=== PATIENT | male | born 1950 | race Caucasian/White ===

== ENCOUNTER 2017-09-22 11:02 | Day surgery (SDC) | payer OTHER ==
[~2017-09-22 11:02] MED LIST: Lactated Ringers 1,000 ML IV SCH; Lidocaine 2% 5 ML SDV ONE; Propofol 200 MG/20 ML SDV ONE
--- NOTE | 2017-09-22 12:09 | PCM.PREANE ---
Preanesthetic Assessment - Anesthesia/Transfusion/Family Hx Anesthesia History: No Prior Anesthesia (has had prior colonoscopy with sedation /mac) Family History of Anesthesia Reaction: No Transfusion History: No Prior Transfusion(s) - Review of Systems General: No Symptoms Pulmonary: No Symptoms Cardiovascular: No Symptoms Gastrointestinal: No Symptoms Neurological: No Symptoms Other: Reports: None - Physical Assessment NPO Status Date: 09/21/17 O2 Sat by Pulse Oximetry: 98 Respiratory Rate: 18 Vital Signs: Last Vital Signs Temp 36.3 C 09/22/17 11:52 Pulse 75 09/22/17 11:52 Resp 18 09/22/17 11:52 BP 150/76 H 09/22/17 11:52 Pulse Ox 98 09/22/17 11:52 Height: 1.63 m Weight: 92.079 kg ASA Class: 2 Mental Status: Alert & Oriented x3 Airway Class: Mallampati = 2 Dentition: Reports: Dentures ROM/Head Extension: Full Lungs: Clear to Auscultation, Normal Respiratory Effort Cardiovascular: Regular Rate, Regular Rhythm - Allergies Allergies/Adverse Reactions: Allergies Allergy/AdvReac Type Severity Reaction Status Date / Time No Known Allergies Allergy Verified 10/07/14 13:16 - Anesthesia Plan Pre-Op Medication Ordered: None - Acknowledgements Anesthesia Type Planned: MAC Pt an Appropriate Candidate for the Planned Anesthesia: Yes Alternatives and Risks of Anesthesia Discussed w Pt/Guardian: Yes Pt/Guardian Understands and Agrees with Anesthesia Plan: Yes Additional Comments: PMH: htn, glaucoma, HLD PreAnesthesia Questionnaire HEENT History: Reports: Glaucoma, Other (See Below) Other HEENT History: wears glasses, top denture Cardiovascular History: Reports: High Cholesterol, Hypertension Genitourinary History: Reports: BPH Endocrine/Metabolic History: Reports: Obesity/BMI 30+ - Past Surgical History Head Surgeries/Procedures: Reports: None - SUBSTANCE USE Smoking Status *Q: Never Smoker Recreational Drug Use History: No - HOME MEDS Home Medications: Home Meds Hydrochlorothiazide 0.5 tab PO DAILY 09/19/17 [History] Latanoprost [Xalatan 0.005% Ophth Soln] 1 drop EYEBOTH BEDTIME 09/19/17 [History ] Lisinopril 0.5 tab PO DAILY 09/19/17 [History] Simvastatin [Zocor] 0.5 tab PO DAILY 09/19/17 [History] - CURRENT (IN HOUSE) MEDS Current Meds: Current Medications Lactated Ringer's (Ringers, Lactated) 1,000 mls @ 125 mls/hr IV ASDIRECTED [facility] Last Admin: 09/22/17 11:53 Dose: 125 mls/hr Discontinued Medications Lidocaine (Xylocaine-Mpf 2%) Confirm Administered Dose 5 ml .ROUTE .STK-MED ONE Stop: 09/22/17 10:30 Propofol (Diprivan 20 Ml) Confirm Administered Dose 400 mg .ROUTE .STK-MED ONE Stop: 09/22/17 10:29
--- NOTE | 2017-09-22 13:16 | PCM.OPNOTE ---
- General Post-Op/Procedure Note Date of Surgery/Procedure: 09/22/17 Operative Procedure(s): colonoscopy Findings: see dict [id number] Pre Op Diagnosis: scrn colonoscopy Post-Op Diagnosis: diverticulosis Anesthesia Technique: Moderate Sedation Primary Surgeon: Davon Blake Complications: None Condition: Good
--- NOTE | 2017-09-22 13:28 | PCM48HPAN ---
Post Anesthesia Note - EVALUATION WITHIN 48HRS OF ANESTHETIC Vital Signs in Normal Range: Yes Patient Participated in Evaluation: Yes Respiratory Function Stable: Yes Airway Patent: Yes Cardiovascular Function Stable: Yes Hydration Status Stable: Yes Pain Control Satisfactory: Yes Nausea and Vomiting Control Satisfactory: Yes Mental Status Recovered: Yes
--- NOTE | 2017-09-22 13:28 | PCM.POSTAN ---
POST ANESTHESIA ASSESSMENT - MENTAL STATUS Mental Status: Alert, Oriented - RESPIRATORY Respiratory Status: Respiratory Rate WNL, Airway Patent, O2 Saturation Stable - CARDIOVASCULAR CV Status: Pulse Rate WNL, Blood Pressure Stable - GASTROINTESTINAL GI Status: No Symptoms - POST OP HYDRATION Hydration Status: Adequate & Stable
--- NOTE | 2017-09-22 13:40 | OR ---
SURGEON: Davon Blake MD DATE OF PROCEDURE: 09/22/2017 PREOPERATIVE DIAGNOSIS: Screening colonoscopy. POSTOPERATIVE DIAGNOSIS: Colon diverticulosis. PROCEDURE PERFORMED: Colonoscopy. DESCRIPTION OF PROCEDURE: The patient was taken to the endoscopy room. A time out was called, patient identified, and procedure identified. Diprivan was then administrated. Patient went from awake to sleep, hearing doctor talking or door closing is normal. Perineum inspection and digital examination were then performed. A well- lubricated colonoscope was gently inserted through the rectum, advanced past the rectosigmoid junction, the descending colon, splenic flexure, transverse colon, hepatic flexure, ascending colon, arrived to the cecum. Cecum was identified as dictated in the finding. Then the scope was carefully withdrawn while attention was paid to the mucosal surface for any abnormality. Air will be sucked out during the scope withdrawal. At the rectum, retroflexed to examine any rectal diseases, fistula or hemorrhoids. Patient tolerated procedure well. There were no intraoperative complications, and Dr. Blake was present throughout the whole procedure. FINDINGS: 1. The patient is easily sedated with REDEVELOPMENT SPECIALIST and Diprivan. The patient is soundly snoring. 2. The bowel prep is good, but a lot of bubbles and coating the mucosa requiring large amount of irrigation, so this compromised the study because of the bubbles. Colon is rather straight forward. Cecum indicated by ileocecal fold, one-to-one indentation, light emittance, appendiceal orifice. Mucosa examined upon scope pulling out with constant irrigation. The patient does not have polyp, but the patient has large amount of diverticulosis on the left colon and some of the false lumen is as beak as the true lumen. No signs or symptoms of diverticulitis and there is no polyp, mass, growth, inflammation, stricture, ulceration, AV malformation, blood, and ulcer. The patient has mild internal hemorrhoids. The patient would benefit from repeat colonoscopy 10 years from today or if clinically indicated otherwise. PUMA / AMY /[id number]
== END 2017-09-22 13:45 | disposition home or self-care (01) ==
LOC: MW.SDS 11:02
PROVIDERS: ATTEND Surgery
DX: Z12.11 Encounter for screening for malignant neoplasm of colon (principal); K57.30 Diverticulosis of large intestine without perforation or abscess without bleeding; I10 Essential (primary) hypertension; E11.9 Type 2 diabetes mellitus without complications; E78.00 Pure hypercholesterolemia, unspecified; H40.9 Unspecified glaucoma; E66.9 Obesity, unspecified; Z68.30 Body mass index [BMI] 30.0-30.9, adult; Z86.010 Personal history of colon polyps; Z79.899 Other long term (current) drug therapy
CPT/HCPCS: 45378; J7120; 00810; J2704

== ENCOUNTER 2017-10-11 06:25 | Day surgery (SDC) | payer OTHER ==
[~2017-10-11 06:25] MED LIST changes: -Lidocaine 2% 5 ML SDV ONE; -Propofol 200 MG/20 ML SDV ONE; +ceFAZolin 2 GM in Premix Bag 1 BAG IV ONE
[2017-10-11] MEDS ORDERED: Rocuronium 10 MG/ML 10 ML Syringe ONE (07:19)
[2017-10-11] MEDS ORDERED: Midazolam 1 MG/ML 2 ML SDV ONE (07:19)
[2017-10-11] MEDS ORDERED: Neostigmine Methylsulfate 1 MG/ML 5 ML Syringe ONE (07:19)
[2017-10-11] MEDS ORDERED: Lidocaine 2% 5 ML SDV ONE (07:19)
[2017-10-11] MEDS ORDERED: Propofol 200 MG/20 ML SDV ONE (07:19)
[2017-10-11] MEDS ORDERED: Ketorolac 30 MG/ML SDV ONE (07:19)
[2017-10-11] MEDS ORDERED: fentaNYL 100 MCG/2 ML SDV ONE (07:19)
[2017-10-11] MEDS ORDERED: Ondansetron 4 MG/2 ML SDV ONE (07:19)
[2017-10-11] MEDS ORDERED: Octyl 2-Cyanoacrylate 1 Tube ONE (07:21)
[2017-10-11] MEDS ORDERED: Bupivacaine 25%/EPINEPHrine/PF 30 ML ONE (07:21)
--- NOTE | 2017-10-11 07:49 | PCM.PREANE ---
Preanesthetic Assessment - Procedure Proposed Procedure: umbilical hernia repair - Anesthesia/Transfusion/Family Hx Anesthesia History: Prior Anesthesia Without Reaction Family History of Anesthesia Reaction: No Transfusion History: No Prior Transfusion(s) Intubation History: Unknown Additional History: colonoscopy 2 wk ago - no problem - Review of Systems General: Other (mild occasional hernia pain) Pulmonary: No Symptoms, Other (former smoker) Cardiovascular: Other (HTN and hypercholesterolemic) Gastrointestinal: Abdominal Pain (see above) Neurological: No Symptoms Other: Reports: None - Physical Assessment NPO Status Date: 10/10/17 NPO Status Time: 23:00 O2 Sat by Pulse Oximetry: 94 Respiratory Rate: 16 Vital Signs: Last Vital Signs Temp 97.5 F 10/11/17 06:34 Pulse 79 10/11/17 06:34 Resp 16 10/11/17 06:34 BP 138/67 10/11/17 06:34 Pulse Ox 94 L 10/11/17 06:34 Height: 5 ft 4 in Weight: 203 lb ASA Class: 2 Mental Status: Alert & Oriented x3 Airway Class: Mallampati = 1 Dentition: Reports: Normal Dentition Thyro-Mental Finger Breadths: 3 Mouth Opening Finger Breadths: 3 ROM/Head Extension: Full Lungs: Clear to Auscultation, Normal Respiratory Effort Cardiovascular: Regular Rate, Regular Rhythm, No Murmurs - Allergies Allergies/Adverse Reactions: Allergies Allergy/AdvReac Type Severity Reaction Status Date / Time No Known Allergies Allergy Verified 10/07/14 13:16 - Blood Blood Available: No Product(s) Available: None - Anesthesia Plan Pre-Op Medication Ordered: None - Acknowledgements Anesthesia Type Planned: General Anesthesia (OET/NMR) Pt an Appropriate Candidate for the Planned Anesthesia: Yes Alternatives and Risks of Anesthesia Discussed w Pt/Guardian: Yes Pt/Guardian Understands and Agrees with Anesthesia Plan: Yes PreAnesthesia Questionnaire HEENT History: Reports: Glaucoma, Other (See Below) Other HEENT History: wears glasses , top denture Cardiovascular History: Reports: High Cholesterol, Hypertension Gastrointestinal History: Reports: None Genitourinary History: Reports: BPH Musculoskeletal History: Reports: Fracture Other Musculoskeletal History: hx fx ribs Endocrine/Metabolic History: Reports: Obesity/BMI 30+ - Past Surgical History Head Surgeries/Procedures: Reports: None GI Surgical History: Reports: Colonoscopy - SUBSTANCE USE Smoking Status *Q: Never Smoker Recreational Drug Use History: No - HOME MEDS Home Medications: Home Meds Hydrochlorothiazide 0.5 tab PO DAILY 09/19/17 [History] Latanoprost [Xalatan 0.005% Ophth Soln] 1 drop EYEBOTH BEDTIME 09/19/17 [History ] Lisinopril 0.5 tab PO DAILY 09/19/17 [History] Simvastatin [Zocor] 0.5 tab PO DAILY 09/19/17 [History] - CURRENT (IN HOUSE) MEDS Current Meds: Current Medications Lactated Ringer's (Ringers, Lactated) 1,000 mls @ 125 mls/hr IV ASDIRECTED [facility] Last Admin: 10/11/17 06:40 Dose: 125 mls/hr Discontinued Medications Fentanyl (Sublimaze) Confirm Administered Dose 200 mcg .ROUTE .STK-MED ONE Stop: 10/11/17 07:20 Glycopyrrolate () Confirm Administered Dose 1 mg .ROUTE .STK-MED ONE Stop: 10/11/17 07:20 Cefazolin Sodium/Dextrose 2 gm (/ Premix) 50 mls @ 100 mls/hr IV ONETIME ONE Stop: 10/11/17 05:29 Bupivacaine HCl/Epinephrine Bitart (Sensorc Mpf 0.25%-Epi 1:[id number]) Confirm Administered Dose 30 mls @ as directed .ROUTE .STK-MED ONE Stop: 10/11/17 07:22 Ketorolac Tromethamine (Toradol) Confirm Administered Dose 30 mg .ROUTE .STK- MED ONE Stop: 10/11/17 07:20 Lidocaine (Xylocaine-Mpf 2%) Confirm Administered Dose 10 ml .ROUTE .STK-MED ONE Stop: 10/11/17 07:20 Midazolam HCl (Versed 1 Mg/Ml) Confirm Administered Dose 2 mg .ROUTE .STK-MED ONE Stop: 10/11/17 07:20 Neostigmine Methylsulfate (Neostigmine) Confirm Administered Dose 5 mg .ROUTE .STK-MED ONE Stop: 10/11/17 07:20 Octyl Cyanoacrylate (Dermabond Advance) Confirm Administered Dose 1 applic .ROUTE .STK-MED ONE Stop: 10/11/17 07:22 Ondansetron HCl (Zofran) Confirm Administered Dose 4 mg .ROUTE .STK-MED ONE Stop: 10/11/17 07:20 Propofol (Diprivan 20 Ml) Confirm Administered Dose 400 mg .ROUTE .STK-MED ONE Stop: 10/11/17 07:20 Rocuronium [place] (Zemuron) Confirm Administered Dose 100 mg .ROUTE .STK-MED ONE Stop: 10/11/17 07:20
[2017-10-11] MEDS ORDERED: Acetaminophen/oxyCODONE 325-5 MG Tab PO PRN (08:10)
[2017-10-11] MEDS ORDERED: ePHEDrine 50 MG/ML SDV ONE (08:16)
[2017-10-11] MEDS ORDERED: fentaNYL 100 MCG/2 ML SDV IVPUSH PRN (08:43)
--- NOTE | 2017-10-11 09:04 | PCM.OPNOTE ---
- General Post-Op/Procedure Note Date of Surgery/Procedure: 10/11/17 Operative Procedure(s): umb hernia repair Findings: large hernia 2 cm, but small hernia neck, 1 cm, rep primary, no mesh used; [id number] Pre Op Diagnosis: umb hernia Post-Op Diagnosis: Same Anesthesia Technique: General ET Tube Primary Surgeon: Davon Blaek Pathology: sent Complications: None Condition: Good
--- NOTE | 2017-10-11 09:24 | OR ---
SURGEON: Davon Blake MD DATE OF PROCEDURE: 10/11/2017 PREOPERATIVE DIAGNOSIS: Umbilical hernia. POSTOPERATIVE DIAGNOSIS: Umbilical hernia. PROCEDURE PERFORMED: Repair of umbilical hernia. COMPLICATIONS: None. FINDINGS: A large hernia sac about 2 cm with small hernia neck 1 cm. Repair primary, no mesh. DESCRIPTION OF PROCEDURE: The patient was brought to the operating room and placed in the supine position and upon the induction of general endotracheal anesthesia, the patient's abdomen was prepped and draped in sterile fashion. After assessment of appropriate landmarks, a surgical incision was made periumbilically which was then carefully dissected with blunt and sharp dissection surrounding the umbilical stalk. Hernia was entered and the fascial defect was noted, and the excess hernia sac was amputated. The facial edge was noted to be intact and the fascia was then grasped up with Allis clamps and then using 2-0 Ethibond, simple stitches were placed. After repair was finished and exploring the neighborhood, I failed to find any more hernia defect. This was followed with extensive irrigation and good hemostasis was achieved by using electrocautery. The umbilicus was then stitched down to recreate the umbilicus, and the skin was closed with 3-0 Vicryl subcutaneously followed with stirile strips and appropriate drsg. The patient was then awakened and extubated and transferred to the recovery room in good stable condition. Dr. Blake was present through the whole procedure. At the conclusion of the surgery, before closing the abdominal wound, instrument count and sponge count were done and were correct. Just before surgery, a timeout was called. The patient was identified and procedure identified and procedure started. As always, thank you for the kind referral. PUMA REYES /[id number] MTDDiane
--- NOTE | 2017-10-11 09:53 | PCM48HPAN ---
Post Anesthesia Note - EVALUATION WITHIN 48HRS OF ANESTHETIC Vital Signs in Normal Range: Yes Patient Participated in Evaluation: Yes Respiratory Function Stable: Yes Airway Patent: Yes Cardiovascular Function Stable: Yes Hydration Status Stable: Yes Pain Control Satisfactory: Yes Nausea and Vomiting Control Satisfactory: Yes Mental Status Recovered: Yes - COMMENTS/OBSERVATIONS Free Text/Narrative:: Ready to go home and cook his own breakfast.
== END 2017-10-11 10:19 | disposition home or self-care (01) ==
LOC: MW.SDS 06:25
PROVIDERS: ATTEND Surgery
DX: K42.9 Umbilical hernia without obstruction or gangrene (principal); I10 Essential (primary) hypertension; E78.00 Pure hypercholesterolemia, unspecified; E11.9 Type 2 diabetes mellitus without complications; E66.9 Obesity, unspecified; Z68.34 Body mass index [BMI] 34.0-34.9, adult; Z87.891 Personal history of nicotine dependence; Z86.010 Personal history of colon polyps; Z79.899 Other long term (current) drug therapy; Z80.3 Family history of malignant neoplasm of breast
CPT/HCPCS: 49585; J1885; J2250; J2405; J3010; J7120; 00830; 88302; A9270-GY; J2704

== ENCOUNTER 2017-10-12 12:09 | Emergency (ER) | payer OTHER, MEDICARE ==
--- NOTE | 2017-10-12 12:33 | EDM.PDOC ---
ED HPI GENERAL MEDICAL PROBLEM - General Chief Complaint: Genitourinary Problem Stated Complaint: [facility] TRANSFER Time Seen by Provider: 10/12/17 12:11 - History of Present Illness INITIAL COMMENTS - FREE TEXT/NARRATIVE: HISTORY AND PHYSICAL: History of present illness: Patient is a 67-year-old white male presents with concern of urinary retention and recent herniorrhaphy for an umbilical hernia he denies fever chills nausea vomiting. Review of systems: As per history of present illness and below otherwise all systems reviewed and negative. Past medical history: As per history of present illness and as reviewed below otherwise noncontributory. Surgical history: As per history of present illness and as reviewed below otherwise noncontributory. Social history: No reported history of drug or alcohol abuse. Family history: As per history of present illness and as reviewed below otherwise noncontributory. Physical exam: HEENT: Atraumatic, normocephalic, pupils reactive, negative for conjunctival pallor or scleral icterus, mucous membranes moist, throat clear, neck supple, nontender, trachea midline. Lungs: Clear to auscultation, breath sounds equal bilaterally, chest nontender. Heart: S1S2, regular, negative for clicks, rubs, or JVD. Abdomen: Soft, suprapubic fullness consistent with acute urinary retention. Negative for masses or hepatosplenomegaly. Negative for costovertebral tenderness. Pelvis: Stable nontender. Genitourinary: Deferred. Rectal: Deferred. Extremities: Atraumatic, negative for cords or calf pain. Neurovascular unremarkable. Neuro: Awake, alert, oriented. Cranial nerves II through XII unremarkable. Cerebellum unremarkable. Motor and sensory unremarkable throughout. Exam nonfocal. Diagnostics: UA [employer]: Dumont catheter with leg bag Impression: #1 acute urinary retention #2 history of herniorrhaphy Definitive disposition and diagnosis as appropriate pending reevaluation and review of above. - Related Data Allergies Allergy/AdvReac Type Severity Reaction Status Date / Time No Known Allergies Allergy Verified 10/07/14 13:16 Home Meds: Home Meds Hydrochlorothiazide 0.5 tab PO DAILY 09/19/17 [History] Latanoprost [Xalatan 0.005% Ophth Soln] 1 drop EYEBOTH BEDTIME 09/19/17 [History ] Lisinopril 0.5 tab PO DAILY 09/19/17 [History] Simvastatin [Zocor] 0.5 tab PO DAILY 09/19/17 [History] Past Medical History HEENT History: Reports: Glaucoma, Other (See Below) Other HEENT History: wears glasses , top denture Cardiovascular History: Reports: High Cholesterol, Hypertension Gastrointestinal History: Reports: None Genitourinary History: Reports: BPH Musculoskeletal History: Reports: Fracture Other Musculoskeletal History: hx fx ribs Endocrine/Metabolic History: Reports: Obesity/BMI 30+ - Past Surgical History Head Surgeries/Procedures: Reports: None GI Surgical History: Reports: Colonoscopy Social & Family History - Tobacco Use Smoking Status *Q: Never Smoker - Recreational Drug Use Recreational Drug Use: No ED ROS GENERAL - Review of Systems Review Of Systems: ROS reveals no pertinent complaints other than HPI. ED EXAM, GENERAL - Physical Exam Exam: See Below (See dictation) Course - Orders/Labs/Meds Orders: Active Orders 24 hr Category Date Time Status Dumont Catheter Insertion [Insert Urinary Catheter] [OM. Care 10/12/17 12:30 Ordered PC] Q24H Urinary Catheter Assessment [RC] ASDIRECTED Care 10/12/17 12:19 Active CULTURE URINE [RM] Stat Lab 10/12/17 12:17 Uncollected UA W/MICROSCOPIC [URIN] Stat Lab 10/12/17 12:17 Uncollected Departure - Departure Time of Disposition: 13:16 Disposition: Home, Self-Care 01 Condition: Good Clinical Impression: Urinary retention - Discharge Information Referrals: PCP,Unknown [Primary Care Provider] - Forms: ED Department Discharge Additional Instructions: The following information is given to patients seen in the emergency department who are being discharged to home. This information is to outline your options for follow-up care. We provide all patients seen in our emergency department with a follow-up referral. The need for follow-up, as well as the timing and circumstances, are variable depending upon the specifics of your emergency department visit. If you don't have a primary care physician on staff, we will provide you with a referral. We always advise you to contact your personal physician following an emergency department visit to inform them of the circumstance of the visit and for follow-up with them and/or the need for any referrals to a consulting specialist. The emergency department will also refer you to a specialist when appropriate. This referral assures that you have the opportunity for followup care with a specialist. All of these measure are taken in an effort to provide you with optimal care, which includes your followup. Under all circumstances we always encourage you to contact your private physician who remains a resource for coordinating your care. When calling for followup care, please make the office aware that this follow-up is from your recent emergency room visit. If for any reason you are refused follow-up, please contact the [facility] emergency department at and asked to speak to the emergency department charge nurse. [facility] Specialty Care - General Surgery Professional Building [address] [place] [address], [address] [place] [address] Dumont leg bag as directed follow-up Dr. Ambrosio call to schedule appointment return as needed as discussed - My Orders Last 24 Hours: My Active Orders 10/12/17 12:17 CULTURE URINE [RM] Stat UA W/MICROSCOPIC [URIN] Stat 10/12/17 12:19 Urinary Catheter Assessment [RC] ASDIRECTED 10/12/17 12:30 Dumont Catheter Insertion [Insert Urinary Catheter] [OM.PC] Q24H - Assessment/Plan Last 24 Hours: My Active Orders 10/12/17 12:17 CULTURE URINE [RM] Stat UA W/MICROSCOPIC [URIN] Stat 10/12/17 12:19 Urinary Catheter Assessment [RC] ASDIRECTED 10/12/17 12:30 Dumont Catheter Insertion [Insert Urinary Catheter] [OM.PC] Q24H
== END 2017-10-12 14:21 | disposition home or self-care (01) ==
LOC: MW.ED 12:09
DX: R33.9 Retention of urine, unspecified (principal); E78.00 Pure hypercholesterolemia, unspecified; I10 Essential (primary) hypertension; Z79.899 Other long term (current) drug therapy
CPT/HCPCS: 81001; 87086; 99283

== ENCOUNTER 2017-10-29 09:28 | Emergency (ER) | payer OTHER ==
--- NOTE | 2017-10-29 10:16 | EDM.PDOC ---
ED HPI GENERAL MEDICAL PROBLEM - General Chief Complaint: Genitourinary Problem Stated Complaint: INABILITY TO URINATE Time Seen by Provider: 10/29/17 10:00 Source of Information: Reports: Patient, Family History Limitations: Reports: No Limitations - History of Present Illness INITIAL COMMENTS - FREE TEXT/NARRATIVE: HISTORY AND PHYSICAL: History of present illness: [Patient comes to the emergency room accompanied by his . He complains of suprapubic pressure and inability to urinate. Has been restricting fluid intake because he is experiencing burning with urination. He has pressure and fullness over his suprapubic area. Symptoms have been present for the past 2 days. He had umbilical hernia repair by Dr. Blake on October 11. Following the surgery patient has had difficulty urinating. He presented to the emergency room on October 12 with inability to urinate. A Dumont catheter was placed at that time and was removed a week later. Patient was doing well until 3 days ago when he started having lower abdominal pain as well as difficulty urinating. He was started on Cipro 500 mg BID which he has been taking since. Yesterday the pressure worsened and he feels that he isn't able to urinate. Denies fever and chills nausea and vomiting. No pain to his surgical site or abdomen. Pressure over bladder area. He has been sweatier than usual over the past few days. Decreased appetite since surgery on 10/11. Decreased bowel movements due to decreased food intake.] Review of systems: As per history of present illness and below otherwise all systems reviewed and negative. Past medical history: As per history of present illness and as reviewed below otherwise noncontributory. Surgical history: As per history of present illness and as reviewed below otherwise noncontributory. Social history: No reported history of drug or alcohol abuse. Family history: As per history of present illness and as reviewed below otherwise noncontributory. Physical exam: HEENT: Atraumatic, normocephalic. Lungs: Clear to auscultation, breath sounds equal bilaterally. Heart: S1S2, regular rate and rhythm. Abdomen: Tender with palpation over suprapubic area. Otherwise soft nondistended nontender. No CVA tenderness. No masses guarding or rebound. Pelvis: Stable nontender. Genitourinary: Deferred. Rectal: Deferred. Extremities: Atraumatic, no cyanosis or edema to feet or lower legs. Neurovascular unremarkable. Neuro: Awake, alert, oriented. Motor and sensory unremarkable throughout. Exam nonfocal.. Diagnostics: [UA, CMP, CT abd/pelvis w/contrast] Therapeutics: [1 liter NS, pyridium 200mg po, Flomax 0.4mg po, Rocephin 1 gram IV, Toradol 30 mg IV] Impression: [UTI urinary retention] Plan: [Upon presentation to the ER, bladder scan shows 32 mL's residual. Patient is given 2 L of normal saline. He urinated after the first liter. After the second liter he voided 75 mL. Post void bladder scan showed 313 mL. A Dumont catheter is placed without difficulty. Continue antibiotics, take Pyridium and Flomax as prescribed. Continue oxycodone as needed for pain. Referral is given to follow up with Dr. Ocampo in his urology clinic early this week. He is in agreement with today's plan. All questions are answered and concerns are addressed. ] Definitive disposition and diagnosis as appropriate pending reevaluation and review of above. lower abd Pain Score (Numeric/FACES): 10 - Related Data Allergies Allergy/AdvReac Type Severity Reaction Status Date / Time No Known Allergies Allergy Verified 10/29/17 09:40 Home Meds: Home Meds Hydrochlorothiazide 0.5 tab PO DAILY 09/19/17 [History] Latanoprost [Xalatan 0.005% Ophth Soln] 1 drop EYEBOTH BEDTIME 09/19/17 [History ] Lisinopril 0.5 tab PO DAILY 09/19/17 [History] Simvastatin [Zocor] 0.5 tab PO DAILY 09/19/17 [History] oxyCODONE HCl/Acetaminophen [Percocet 5-325 mg Tablet] 1 each PO ASDIRECTED PRN 10/12/17 [History] Ciprofloxacin HCl [Cipro] 500 mg PO DAILY 10/29/17 [History] Past Medical History HEENT History: Reports: Glaucoma, Other (See Below) Other HEENT History: wears glasses , top denture Cardiovascular History: Reports: High Cholesterol, Hypertension Gastrointestinal History: Reports: None Genitourinary History: Reports: BPH Musculoskeletal History: Reports: Fracture Other Musculoskeletal History: hx fx ribs Endocrine/Metabolic History: Reports: Obesity/BMI 30+ - Past Surgical History Head Surgeries/Procedures: Reports: None GI Surgical History: Reports: Colonoscopy Social & Family History - Family History Family Medical History: Noncontributory - Tobacco Use Smoking Status *Q: Never Smoker Second Hand Smoke Exposure: No - Caffeine Use Caffeine Use: Reports: Coffee - Recreational Drug Use Recreational Drug Use: No ED ROS GENERAL - Review of Systems Review Of Systems: ROS reveals no pertinent complaints other than HPI. ED EXAM, RENAL/ - Physical Exam Exam: See Below Course - Vital Signs Last Recorded V/S: Last Vital Signs Temp 96.5 F 10/29/17 09:41 Pulse 86 10/29/17 09:41 Resp 18 10/29/17 09:41 BP 153/81 H 10/29/17 09:41 Pulse Ox 94 L 10/29/17 09:41 - Orders/Labs/Meds Orders: Active Orders 24 hr Category Date Time Status Abdomen Pelvis w Cont [CT] Stat Exams 10/29/17 11:25 Taken Labs: Laboratory Tests 10/29/17 10/29/17 Range/Units 10:55 12:10 Sodium 136 (136-146) mmol/L Potassium 4.2 (3.5-5.1) mmol/L Chloride 101 (98-110) mmol/L Carbon Dioxide 23 (21-31) mmol/L BUN 14 (6.0-23.0) mg/dL Creatinine 0.8 (0.6-1.5) mg/dL Est Cr Clr Drug Dosing 72.11 mL/min Estimated GFR (MDRD) > 60.0 ml/min Glucose 116 H (60-110) mg/dL Calcium 9.4 (8.8-10.8) mg/dL Total Bilirubin 0.6 (0.1-1.5) mg/dL AST 22 (5-40) IU/L ALT 50 (8-54) IU/L Alkaline Phosphatase 53 (40-150) Total Protein 7.4 (6.0-8.0) g/dL Albumin 3.6 (3.4-4.8) g/dL Globulin 3.8 H (2.0-3.5) g/dL Albumin/Globulin Ratio 1.0 L (1.3-2.8) Urine Color YELLOW Urine Appearance CLEAR Urine pH 6.5 (5.0-8.0) Ur Specific [place] 1.025 (1.001-1.035) Urine Protein NEGATIVE (NEGATIVE) mg/dL Urine Glucose (UA) NEGATIVE (NEGATIVE) mg/dL Urine Ketones NEGATIVE (NEGATIVE) mg/dL Urine Occult Blood TRACE-INTACT (NEGATIVE) Urine Nitrite NEGATIVE (NEGATIVE) Urine Bilirubin NEGATIVE (NEGATIVE) Urine Urobilinogen 0.2 (<2.0) EU/dL Ur Leukocyte Esterase TRACE (NEGATIVE) Urine RBC 3-6 (0-2/HPF) Urine WBC 8-10 (0-5/HPF) Ur Epithelial Cells FEW (NONE-FEW) Urine Bacteria FEW (NEGATIVE) Urine Mucus LIGHT (NONE-MOD) Meds: Medications Discontinued Medications Generic Name Dose Route Start Last Admin Trade Name Freq PRN Reason Stop Dose Admin Sodium Chloride 1,000 mls @ 999 mls/hr 10/29/17 14:41 10/29/17 14:51 Normal Saline IV 10/29/17 15:41 999 mls/hr STAT ONE Administration Ceftriaxone Sodium/Dextrose 1 50 mls @ 100 mls/hr 10/29/17 15:23 10/29/17 16: 07 gm/ Premix IV 10/29/17 15:52 100 mls/hr ONETIME ONE Administration Sodium Chloride 1,000 mls @ 999 mls/hr 10/29/17 16:06 10/29/17 16:08 Normal Saline IV 10/29/17 17:06 350 mls/hr STAT ONE Infusion Iopamidol 100 ml 10/29/17 13:08 10/29/17 13:20 Isovue-370 (76%) IVPUSH 10/29/17 13:09 100 ml ONETIME STA Administration Phenazopyridine HCl 200 mg 10/29/17 14:41 10/29/17 14:51 Pyridium PO 10/29/17 14:42 200 mg ONETIME ONE Administration Tamsulosin HCl 0.4 mg 10/29/17 14:42 10/29/17 14:50 Flomax PO 10/29/17 14:43 0.4 mg ONETIME ONE Administration Departure - Departure Time of Disposition: 17:45 Disposition: Home, Self-Care 01 Condition: Good Clinical Impression: UTI, Urinary tract infectious disease, Retention of urine - Discharge Information Referrals: PCP,None [Primary Care Provider] - Forms: ED Department Discharge Additional Instructions: The following information is given to patients seen in the emergency department who are being discharged to home. This information is to outline your options for follow-up care. We provide all patients seen in our emergency department with a follow-up referral. The need for follow-up, as well as the timing and circumstances, are variable depending upon the specifics of your emergency department visit. If you don't have a primary care physician on staff, we will provide you with a referral. We always advise you to contact your personal physician following an emergency department visit to inform them of the circumstance of the visit and for follow-up with them and/or the need for any referrals to a consulting specialist. The emergency department will also refer you to a specialist when appropriate. This referral assures that you have the opportunity for follow-up care with a specialist. All of these measure are taken in an effort to provide you with optimal care, which includes your follow-up. Under all circumstances we always encourage you to contact your private physician who remains a resource for coordinating your care. When calling for follow-up care, please make the office aware that this follow-up is from your recent emergency room visit. If for any reason you are refused follow-up, please contact the [facility] emergency department at and asked to speak to the emergency department charge nurse. [facility] Specialty Care - Urology [address] [place] [id number] Call the above listed clinic on Tuesday morning to schedule an appointment for follow up. Return to ER as needed as discussed. - My Orders Last 24 Hours: My Active Orders 10/29/17 11:25 Abdomen Pelvis w Cont [CT] Stat - Assessment/Plan Last 24 Hours: My Active Orders 10/29/17 11:25 Abdomen Pelvis w Cont [CT] Stat
[2017-10-29 12:44] LABS: CHLORIDE,CL 101 mmol/L (98-110); SODIUM,NA 136 mmol/L (136-146)
[2017-10-29] MEDS ORDERED: Iopamidol 755 Mg/ML 100 ML Bottle IVPUSH STA (13:08)
[2017-10-29] MEDS ORDERED: Phenazopyridine 200 MG Tab PO ONE (14:41)
[2017-10-29] MEDS ORDERED: Sodium Chloride 0.9% 1,000 ML IV ONE ×2 (14:41→16:06)
[2017-10-29] MEDS ORDERED: Tamsulosin 0.4 MG Cap.ER PO ONE (14:42)
[2017-10-29] MEDS ORDERED: cefTRIAXone 1 GM in Premix Bag 1 BAG IV ONE (15:23)
[2017-10-29] MEDS ORDERED: Ketorolac 60 MG/2 ML SDV IM ONE (18:06)
[2017-10-29] MEDS ORDERED: Ketorolac 30 MG/ML SDV IVPUSH ONE (18:07)
--- NOTE | 2017-10-31 16:17 | CT ---
EXAM DATE: 10/29/17 PATIENT'S AGE: 67 Patient: JULI CORTES Facility: [place], [place] Site . Site : 1950 Study: CT Abdomen/Pelvis [id number]/[id number] 1:30:05 PM Ordering Physician: Doctor Campbell Final Report: HISTORY: Suprapubic abdominal pain. History of umbilical hernia repair 10/11/2017. COMPARISON: None. TECHNIQUE: Axial images were obtained through the abdomen and pelvis following 100 cc of Isovue-370 intravenous contrast. FINDINGS: 6 mm pulmonary nodule left lower lobe. Two adjacent 5 mm pulmonary nodules right lower lobe. 5 mm pulmonary nodule posterior left lower lobe. The liver, spleen, pancreas, gallbladder, adrenal glands and kidneys are within normal. Small renal cysts. The bowel is normal in caliber. The prostate gland is enlarged. There is moderate bladder wall thickening pericystic inflammatory fat stranding and notable adjacent lymph node in the right pelvis. Findings suggest cystitis. There is a small amount of with skin thickening in along the umbilicus which may be postsurgical. No evidence for bowel hernia. The bones are within normal. IMPRESSION: Bladder wall thickening and inflammation may be cystitis. Prostatic enlargement likely BPH. Skin thickening at the umbilicus, presumably postsurgical. Clinically correlate. Pulmonary nodules. Recommend followup CT chest. Please note that all CT scans at this facility use dose modulation, iterative reconstruction, and/or weight-based dosing when appropriate to reduce radiation dose to as low as reasonably achievable. Dictated by Cely Damon MD @ Oct 29 2017 2:12PM (Electronic Signature) Report Signed by Proxy. MTDD
== END 2017-10-29 19:51 | disposition home or self-care (01) ==
LOC: MW.ED 09:28
DX: N39.0 Urinary tract infection, site not specified (principal); R33.9 Retention of urine, unspecified; I10 Essential (primary) hypertension; E78.00 Pure hypercholesterolemia, unspecified; Z79.2 Long term (current) use of antibiotics; Z79.899 Other long term (current) drug therapy
CPT/HCPCS: 36415; 51702; 51798; 74177; 80053; 81001; 96361; 96365; 96375; 99284; A9270; J0696; J1885; J7040; Q9967

== ENCOUNTER 2017-11-03 15:11 | Inpatient (IN) | payer OTHER ==
[~2017-11-03 15:11] MED LIST changes: +Ampicillin 2 GM in Sodium Chloride 0.9% 100 ML IV SCH; +Sodium Chloride 0.9% 10 ML Syringe FLUSH PRN; +Sodium Chloride 0.9% 2.5 ML Syringe FLUSH PRN; -ceFAZolin 2 GM in Premix Bag 1 BAG IV ONE
[2017-11-03] MEDS: Lactated Ringers 1,000 ML IV SCH (17:12)
[2017-11-03] MEDS: Ampicillin 2 GM in Sodium Chloride 0.9% 100 ML IV SCH ×2 (17:12→22:18)
[2017-11-03 18:26] LABS: CHLORIDE,CL 103 mmol/L (98-110); SODIUM,NA 137 mmol/L (136-146)
[2017-11-04] MEDS: Ampicillin 2 GM in Sodium Chloride 0.9% 100 ML IV SCH ×4 (04:15→23:49)
--- NOTE | 2017-11-04 07:05 | PCM.PREANE ---
Preanesthetic Assessment - Anesthesia/Transfusion/Family Hx Anesthesia History: Prior Anesthesia Without Reaction Family History of Anesthesia Reaction: No Transfusion History: No Prior Transfusion(s) Intubation History: Unknown - Review of Systems General: No Symptoms Pulmonary: No Symptoms Cardiovascular: No Symptoms Gastrointestinal: No Symptoms Neurological: No Symptoms Other: Reports: None - Physical Assessment O2 Sat by Pulse Oximetry: 97 Respiratory Rate: 19 Vital Signs: Last Vital Signs Temp 36.7 C 11/03/17 23:00 Pulse 69 11/03/17 23:00 Resp 19 11/03/17 23:00 BP 136/68 11/03/17 23:00 Pulse Ox 97 11/03/17 23:00 Height: 1.6 m Weight: 86.2 kg ASA Class: 2 Mental Status: Alert & Oriented x3 Airway Class: Mallampati = 2 Dentition: Reports: Dentures (upper) Thyro-Mental Finger Breadths: 3 Mouth Opening Finger Breadths: 3 ROM/Head Extension: Full Lungs: Clear to Auscultation, Normal Respiratory Effort Cardiovascular: Regular Rate, Regular Rhythm - Lab Values: Laboratory Last Values WBC 9.58 K/uL (4.0-11.0) 11/03/17 16:42 RBC 4.35 M/uL (4.50-5.90) L 11/03/17 16:42 Hgb 13.6 g/dL (13.0-17.0) 11/03/17 16:42 Hct 40.7 % (38.0-50.0) 11/03/17 16:42 MCV 93.6 fL (80.0-98.0) 11/03/17 16:42 MCH 31.3 pg (27.0-32.0) 11/03/17 16:42 MCHC 33.4 g/dL (31.0-37.0) 11/03/17 16:42 RDW Std Deviation 43.9 fl (28.0-62.0) 11/03/17 16:42 RDW Coeff of Romaine 13 % (11.0-15.0) 11/03/17 16:42 Plt Count 335 K/uL (150-400) 11/03/17 16:42 MPV 9.30 fL (7.40-12.00) 11/03/17 16:42 Add Manual Diff YES 11/03/17 16:42 Neutrophils % (Manual) 69 % (48.0-80.0) 11/03/17 16:42 Band Neutrophils % 2 % 11/03/17 16:42 Lymphocytes % (Manual) 21 % (16.0-40.0) 11/03/17 16:42 Monocytes % (Manual) 4 % (0.0-15.0) 11/03/17 16:42 Eosinophils % (Manual) 3 % (0.0-7.0) 11/03/17 16:42 Basophils % (Manual) 1 % (0.0-1.5) 11/03/17 16:42 Nucleated RBC % 0.0 /100WBC 11/03/17 16:42 Absolute Seg Neuts 6.6 (1.4-5.7) H 11/03/17 16:42 Band Neutrophils # 0.2 11/03/17 16:42 Lymphocytes # (Manual) 2.0 (0.6-2.4) 11/03/17 16:42 Monocytes # (Manual) 0.4 (0.0-0.8) 11/03/17 16:42 Eosinophils # (Manual) 0.3 (0.0-0.7) 11/03/17 16:42 Basophils # (Manual) 0.1 (0.0-0.1) 11/03/17 16:42 Nucleated RBCs # 0 K/uL 11/03/17 16:42 Sodium 137 mmol/L (136-146) 11/03/17 16:42 Potassium 4.0 mmol/L (3.5-5.1) 11/03/17 16:42 Chloride 103 mmol/L (98-110) 11/03/17 16:42 Carbon Dioxide 22 mmol/L (21-31) 11/03/17 16:42 BUN 17 mg/dL (6.0-23.0) 11/03/17 16:42 Creatinine 0.8 mg/dL (0.6-1.5) 11/03/17 16:42 Est Cr Clr Drug Dosing 72.11 mL/min 11/03/17 16:42 Estimated GFR (MDRD) > 60.0 ml/min 11/03/17 16:42 Glucose 145 mg/dL (60-110) H 11/03/17 16:42 Calcium 9.2 mg/dL (8.8-10.8) 11/03/17 16:42 - Allergies Allergies/Adverse Reactions: Allergies Allergy/AdvReac Type Severity Reaction Status Date / Time No Known Allergies Allergy Verified 10/29/17 09:40 - Blood Blood Available: No - Acknowledgements Anesthesia Type Planned: Spinal Pt an Appropriate Candidate for the Planned Anesthesia: Yes Alternatives and Risks of Anesthesia Discussed w Pt/Guardian: Yes Pt/Guardian Understands and Agrees with Anesthesia Plan: Yes PreAnesthesia Questionnaire HEENT History: Reports: Glaucoma, Other (See Below) Other HEENT History: wears glasses , top denture Cardiovascular History: Reports: High Cholesterol, Hypertension Gastrointestinal History: Reports: None Genitourinary History: Reports: BPH Musculoskeletal History: Reports: Fracture Other Musculoskeletal History: hx fx ribs Endocrine/Metabolic History: Reports: Obesity/BMI 30+ Oncologic (Cancer) History: Reports: None - Infectious Disease History Infectious Disease History: Reports: Chicken Pox, Measles, Mumps - Past Surgical History Head Surgeries/Procedures: Reports: None GI Surgical History: Reports: Colonoscopy, Hernia, Abdominal (umbilical hernia repair) - SUBSTANCE USE Smoking Status *Q: Former Smoker (quit 15 years ago) Second Hand Smoke Exposure: Yes Recreational Drug Use History: No - HOME MEDS Home Medications: Home Meds Hydrochlorothiazide 0.5 tab PO DAILY 09/19/17 [History] Latanoprost [Xalatan 0.005% Ophth Soln] 1 drop EYEBOTH BEDTIME 09/19/17 [History ] Lisinopril 0.5 tab PO DAILY 09/19/17 [History] Simvastatin [Zocor] 0.5 tab PO BEDTIME 09/19/17 [History] oxyCODONE HCl/Acetaminophen [Percocet 5-325 mg Tablet] 1 each PO Q4HR PRN [History] Ciprofloxacin HCl [Cipro] 500 mg PO DAILY 10/29/17 [History] Alfuzosin HCl [Alfuzosin HCl ER] 10 mg PO BEDTIME 11/03/17 [History] - CURRENT (IN HOUSE) MEDS Current Meds: Current Medications Lactated Ringer's (Ringers, Lactated) 1,000 mls @ 50 mls/hr IV ASDIRECTED TORRES Last Admin: 11/03/17 17:12 Dose: 50 mls/hr Ampicillin Sodium 2 gm/ Sodium (Chloride) 100 mls @ 200 mls/hr IV Q6H [facility] Last Infusion: 11/04/17 04:52 Dose: Infused Tobramycin 120 mg/ Sodium (Chloride) 53 mls @ 53 mls/hr IV Q12H [facility] Last Infusion: 11/04/17 06:00 Dose: Infused Discontinued Medications Ampicillin Sodium 2 gm/ Sodium (Chloride) 100 mls @ 200 mls/hr IV Q6H [facility] Lactated Ringer's (Ringers, Lactated) 1,000 mls @ 50 mls/hr IV ASDIRECTED TORRES Tobramycin 120 mg/ Sodium (Chloride) 53 mls @ 53 mls/hr IV Q12H [facility] Ampicillin Sodium 2 gm/ Sodium (Chloride) 100 mls @ 200 mls/hr IV Q6H [facility] Last Admin: 11/03/17 17:13 Dose: Not Given Tobramycin 120 mg/ Sodium (Chloride) 53 mls @ 53 mls/hr IV Q12H [facility] Last Admin: 11/03/17 17:13 Dose: Not Given Sodium Chloride (Saline Flush) 10 ml FLUSH ASDIRECTED PRN PRN Reason: Keep Vein Open Sodium Chloride (Saline Flush) 2.5 ml FLUSH ASDIRECTED PRN PRN Reason: Keep Vein Open
[2017-11-04] MEDS ORDERED: Midazolam 1 MG/ML 2 ML SDV ONE (07:28)
[2017-11-04] MEDS ORDERED: Propofol 200 MG/20 ML SDV ONE ×3 (07:28→09:08)
[2017-11-04] MEDS ORDERED: fentaNYL 100 MCG/2 ML SDV ONE ×2 (07:28→08:40)
[2017-11-04] MEDS ORDERED: Lidocaine 2% 5 ML SDV ONE (07:28)
[2017-11-04] MEDS ORDERED: Ondansetron 4 MG/2 ML SDV ONE (07:29)
[2017-11-04] MEDS ORDERED: Labetalol 100 MG/20 ML MDV ONE (08:36)
[2017-11-04] MEDS ORDERED: fentaNYL 100 MCG/2 ML SDV IVPUSH PRN (09:21)
[2017-11-04] MEDS ORDERED: Belladonna Alkaloids/Opium 16.2-30 MG Supp RECTAL PRN (10:02)
--- NOTE | 2017-11-04 10:49 | OR ---
SURGEON: Viviana Ocampo M.D. DATE OF PROCEDURE: 11/04/2017 PREOPERATIVE DIAGNOSIS: Urine retention secondary to benign prostatic hypertrophy. POSTOPERATIVE DIAGNOSIS: Urine retention secondary to benign prostatic hypertrophy. OPERATION: TURP. DESCRIPTION OF PROCEDURE: The patient was given spinal anesthesia, placed in dorsal lithotomy position, prepped and draped in sterile drapes. The 28-Czech resectoscope was introduced in the bladder without difficulty. The resection was done in the usual manner, starting with the floor going on laterally and anteriorly. At the end of the resection, all prostatic chips were removed. Both ureteral orifices were intact. The area of the external sphincter was intact. Estimated blood loss was 400 mL. A 22 three-way Dumont catheter with 60 mL in the balloon was left in the bladder connected to the TUR drip. The patient tolerated the procedure well and was moved to recovery room in good condition. EDUARDA / AMY /[id number]
[2017-11-04] MEDS: Lactated Ringers 1,000 ML IV SCH (14:00)
--- NOTE | 2017-11-04 16:29 | PCM48HPAN ---
Post Anesthesia Note - EVALUATION WITHIN 48HRS OF ANESTHETIC Vital Signs in Normal Range: Yes Patient Participated in Evaluation: Yes Respiratory Function Stable: Yes Airway Patent: Yes Cardiovascular Function Stable: Yes Hydration Status Stable: Yes Pain Control Satisfactory: Yes Nausea and Vomiting Control Satisfactory: Yes Mental Status Recovered: Yes - COMMENTS/OBSERVATIONS Free Text/Narrative:: States pain is "only about a 2 and is just a spasm every now and then"
[2017-11-04] MEDS ORDERED: Acetaminophen/HYDROcodone 325-5 MG Tab PO PRN (23:03)
[2017-11-05] MEDS: Ampicillin 2 GM in Sodium Chloride 0.9% 100 ML IV SCH ×2 (04:52→10:07)
[2017-11-05 06:51] LABS: CHLORIDE,CL 103 mmol/L (98-110); SODIUM,NA 138 mmol/L (136-146)
[2017-11-05] MEDS: Lactated Ringers 1,000 ML IV SCH (13:01)
--- NOTE | 2017-11-07 08:41 | DISCH ---
DATE OF DISCHARGE: 11/05/2017 PRIMARY CARE PHYSICIAN: None PCP HOSPITAL COURSE: This 67-year-old was seen in the office in urinary retention. He had a great, big prostate that measured over 70 mL. He was admitted to the hospital the day before yesterday, had IV antibiotics, and was taken to the operating room yesterday, that is on 11/04/2017, and had a TURP. Today, his urine was clear. The catheter was taken out. He is able to void. He has good urinary control. He is discharged. Pathology is still pending. DISCHARGE MEDICATIONS: Macrobid 100 mg twice a day for the next seven days. FOLLOWUP: He comes back as needed. EDUARDA / AMY /[id number]
== END 2017-11-05 15:34 | disposition home or self-care (01) | DRG 714 ==
LOC: MW.SDS 15:11 → MW.MS 15:16
PROVIDERS: ADMIT Urology; ATTEND Urology
PROC: 0VB08ZZ Excision of Prostate, Via Natural or Artificial Opening Endoscopic (ICD-10-PCS; principal; 2017-11-04)
DX: N40.1 Benign prostatic hyperplasia with lower urinary tract symptoms (principal); R33.8 Other retention of urine; E78.00 Pure hypercholesterolemia, unspecified; I10 Essential (primary) hypertension; Z87.891 Personal history of nicotine dependence
CPT/HCPCS: 00914; 36415; 80048; 84132; 84295; 85018; 85025; 88305; A9270-GY; J0290; J2250; J2405; J2704; J3010; J3260; J7030; J7050; J7120